=== PATIENT | male | born 1975 | race Caucasian/White ===

== ENCOUNTER 2024-12-06 22:37 | Emergency (ER) | payer OTHER ==
[~2024-12-06] VITALS: Ht 170.2 cm; Wt 103.4 kg
[2024-12-06 22:54] VITALS: PULSE 98; RESP 17; TEMP 98.3
[2024-12-06] MEDS: KETOROLAC TROMETHAMINE 60 MG/2 ML VIAL IM STA (23:17)
[2024-12-06 23:45] LABS: BILIRUBIN,URINE NEGATIVE (NEGATIVE); CLARITY,URINE CLEAR (CLEAR); COLOR,URINE YELLOW (YELLOW); GLUCOSE, URINE NEGATIVE (NEGATIVE); KETONES,URINE NEGATIVE (NEGATIVE); LEUKOCYTE ESTERASE ,URINE NEGATIVE (NEGATIVE); NITRITE,URINE NEGATIVE (NEGATIVE); PH,URINE 6 (5 - 7); PROTEIN,URINE DIPSTICK NEGATIVE (NEGATIVE); URINE UROBILINOGEN 0.2 mg/dL (0.2 - 1)
[2024-12-07 00:07] LABS: WBC,URINE (MAN) 0-5 /HPF (0-5)
[2024-12-07 00:08] LABS: BACTERIA,URINE MODERATE /HPF; EPITHELIAL CELLS,URINE RARE /LPF
[2024-12-07] MEDS ORDERED: PREDNISONE20 MG PO (00:53)
[2024-12-07] MEDS ORDERED: KETOROLAC TROME10 MG PO (00:53)
[2024-12-07] MEDS ORDERED: ULTRAM 50MG50 MG PO (00:54)
[2024-12-07 01:20] VITALS: BP 162/103; PULSE 84; RESP 18; TEMP 98; O2SAT 97
== END 2024-12-07 01:17 | disposition home or self-care (01) ==
LOC: ER 22:49
DX: R10.9 Unspecified abdominal pain (principal); M54.31 Sciatica, right side; K80.20 Calculus of gallbladder without cholecystitis without obstruction; K57.90 Diverticulosis of intestine, part unspecified, without perforation or abscess without bleeding; E78.00 Pure hypercholesterolemia, unspecified; G89.29 Other chronic pain; F17.210 Nicotine dependence, cigarettes, uncomplicated
CPT/HCPCS: 74176; 81001; 99284; J1885